=== PATIENT | male | born 1945 | race Caucasian/White ===

== ENCOUNTER 2018-05-06 00:14 | Inpatient (IN) | payer MEDICARE, OTHER ==
[2018-05-05 15:06] LABS: INR 1.01
[~2018-05-06] VITALS: Ht 167.6 cm; Wt 101.2 kg
[~2018-05-06 00:14] MED LIST: AMLO-125 PO; ASCO-182 PO; ASPI-1471 PO; CHOL200022 PO; CINN500C12 PO; HYDR-2966 PO; LOSA100T75 PO; LUTE1CAP PO; MAGN400C PO; METF-450 PO; METO25TA93 PO; MULT1CAP59 PO; OMEG1CAP35 PO; POTA99TA15 PO; SIMV-54 PO; TURM500C4 PO
[2018-05-06] MEDS ORDERED: fentaNYL CITR 100 MCG/2 ML AMP ONE (07:43)
[2018-05-06] MEDS ORDERED: PROPOFOL EMUL(*) 10MG/ML 20 ML 20 ML ONE (07:44)
[2018-05-06] MEDS ORDERED: LIDOCAINE MPF 1% 5 ML VIAL ONE (07:44)
[2018-05-06] MEDS ORDERED: KETAMINE HCL-NS 50 MG/5 ML SYR ONE (07:44)
[2018-05-06] MEDS ORDERED: DEXAMETHASONE SOD PHOS 10MG/ML ONE (07:44)
[2018-05-06] MEDS ORDERED: ONDANSETRON 4 MG/2 ML VIAL ONE (07:44)
[2018-05-06 08:20] VITALS: BP 152/88
[2018-05-06] MEDS ORDERED: MIDAZOLAM 2 MG/2 ML VIAL IVP PRN (09:15)
[2018-05-06] MEDS ORDERED: ROPIVACAINE/EPI/CLONIDINE/KET 50 ML SYRINGE INJ ONE (09:15)
[2018-05-06] MEDS ORDERED: PREGABALIN 75 MG CAPSULE PO ONE (09:15)
[2018-05-06] MEDS ORDERED: TRANEXAMIC AC 1000 MG/10ML SDV 1,000 MG in DEXTROSE 5% 50 ML BAG 50 ML IV ONE (09:15)
[2018-05-06] MEDS ORDERED: NORMOSOL R SOLN(*) 1000 ML BAG 1,000 ML IV PRN (09:15)
[2018-05-06] MEDS ORDERED: FAMOTIDINE 20 MG TAB PO ONE (09:15)
[2018-05-06] MEDS ORDERED: ceFAZolin(*) 2GM/D5W 50ML 50 ML IVPB ONE (09:15)
[2018-05-06] MEDS ORDERED: LIDOCAINE/SOD BICARB 8.4% SYR ID ONE (09:15)
[2018-05-06] MEDS ORDERED: ACETAMINOPHEN 500 MG TAB PO ONE (09:15)
[2018-05-06] MEDS ORDERED: CELECOXIB 200 MG CAP PO ONE (09:15)
[2018-05-06] MEDS ORDERED: BACITRACIN 50000 UNIT/VIAL 100,000 UNIT in NS 0.9% 3000 ML IRRIGATION BAG 3,000 ML IR ONE (09:15)
[2018-05-06] MEDS ORDERED: GLYCOPYRROLATE 0.2MG/ML 1 ML INJ ONE (10:48)
[2018-05-06] MEDS ORDERED: PROMETHAZINE 25 MG/ML 1 ML AMP IVP PRN (12:25)
[2018-05-06] MEDS ORDERED: diphenhydrAMINE 25 MG CAP PO PRN (12:25)
[2018-05-06] MEDS ORDERED: LR 1000 ML BAG 1000 ML IV PRN (12:25)
[2018-05-06] MEDS ORDERED: MAGNESIUM HYDROXIDE* 30ML UDCP PO PRN (12:25)
[2018-05-06] MEDS ORDERED: HYDROmorphone HCL 2 MG/ML SDV IVP PRN (12:25)
[2018-05-06] MEDS ORDERED: FLUSH 10 ML SYR IVP PRN (12:25)
[2018-05-06] MEDS ORDERED: ZOLPIDEM TARTRATE 5 MG TAB PO PRN (12:25)
[2018-05-06] MEDS ORDERED: ONDANSETRON 4 MG/2 ML VIAL IVP PRN (12:25)
[2018-05-06] MEDS ORDERED: MAGNESIUM CITRATE 300 ML BTL PO PRN (12:25)
[2018-05-06] MEDS ORDERED: diphenhydrAMINE 50 MG/ML VIAL IVP PRN (12:25)
[2018-05-06] MEDS ORDERED: BISACODYL 10 MG SUPP PR PRN (12:25)
--- NOTE | 2018-05-06 12:47 | RADIOLOGY IMAGING REPORT ---
FACILITY: [facility] PATIENT NAME: Bert Dowell : 1945 MR: [id number] V: [id number] EXAM DATE: ORDERING PHYSICIAN: ABELARDO BUNCH TECHNOLOGIST: Location: [facility] Patient: Bert Dowell : 1945 Visit/Account:[id number] Date of Sevice: 05/06/2018 HIP IN OR RIGHT HISTORY: Right hip pain. Hip replacement. ADDITIONAL HISTORY: None. COMPARISON: None. FINDINGS: Fluoroscopy provided for intraoperative procedure. Single intraoperative image. Right hip arthroplasty in good alignment on this single image. Moderate-severe degenerative changes at the left hip. IMPRESSION: 1. Intraoperative right hip arthroplasty in good alignment. Report Dictated By: George Lynn MD at 05/06/2018 12:42 PM Report E-Signed By: George Lynn MD at 05/06/2018 12:43 PM [id number]:[email or web address]
--- NOTE | 2018-05-06 12:51 | EKG ---
FACILITY: [facility] PATIENT NAME: MEL MTZ : [id number] MR: [id number] V: [id number] EXAM DATE: ORDERING PHYSICIAN: LEISA JOHNSTON TECHNOLOGIST: TALIA Jacobs Reason : CHECK RHYTHMN Blood Pressure : / mmHG Vent. Rate : 069 BPM Atrial Rate : 069 BPM P-R Int : 204 ms QRS Dur : 076 ms QT Int : 428 ms P-R-T Axes : 046 -20 -04 degrees QTc Int : 458 ms Normal sinus rhythm Low voltage QRS Inferior infarct , age undetermined Possible Anterolateral infarct , age undetermined Abnormal ECG No previous ECGs available Confirmed by LUDIVINA WRIGHT ([id number]) on 05/07/2018 6:24:52 AM Referred By: VICKIE Confirmed By:LUDIVINA WRIGHT
--- NOTE | 2018-05-06 12:57 | OPERATIVE REPORT 1 ---
EVENT DATE: May 06, 2018 SURGEON: Armani Nunez MD ANESTHESIOLOGIST: Tom Norwood MD ANESTHESIA: General plus spinal. [employer]: Javier Diaz PA-C PREOPERATIVE DIAGNOSIS Right hip osteoarthritis. POSTOPERATIVE DIAGNOSIS Right hip osteoarthritis. PROCEDURE PERFORMED Right total hip arthroplasty. FINDINGS The patient had a significant amount of arthritic changes associated with the hip but was amenable for a total hip replacement. ESTIMATED BLOOD LOSS About 200 mL. DRAINS None. COMPLICATIONS None. TOURNIQUET TIME Nonapplicable. IMPLANTS USED Alvin 58 mm cluster hole Trabecular metal cup with a neutral liner to accommodate a 40 mm head, a 13.5 extended off-set stem, and a 40 +0 head and then a dome hole plug and screw hole plugs accordingly for the cup. INDICATIONS AND HISTORY This patient is a 72-year-old male that presented to my clinic for evaluation of right hip pain and irritation going on for some time. He actually had hip pain bilaterally, but the right seemed to be giving him worse trouble. We talked about the implications as well as treatment options and he had failed all conservative management, so he wanted to go ahead with a total hip arthroplasty and so we got him set up to do this today 05/06/2018. The risk and benefits were discussed with the patient and informed consent was obtained at the last clinic visit. We talked about the risk and benefits associated with this, specifically for hips and just surgery in general. DESCRIPTION OF PROCEDURE As the patient was brought in the operating room, he and the procedure were both verified. He was placed sitting up on the table and give a spinal by Dr. Norwood. He was then put supine and then induced and intubated and then turned in the lateral decubitus position for the hip towards the ceiling. The right hip was then prepped and draped in the usual fashion. A timeout was observed, verifying the correct patient and procedure. The standard incision was made over the posterior aspect of the hip and it was taken through the skin and subcutaneous tissue until I got down to the greater trochanter. Then I was able to identify the piriformis and short external rotators. I was then able to cut the piriformis and then tag it for later repair. Once I did this, I was then able to expose the posterior capsule and then I put a T-shape incision within the capsule to create two flaps and then tagged the one flap for later repair also. I then was able to dislocate the hip without too much difficulty and then cut the hip in accordance with the standard cut with the Alvin System. I then removed the head and then cleaned out the socket and removed the ligamentum teres in this middle area, and then also removed the labrum 360 degrees around the socket in order to get access to the bone to verify where it was for placement of the socket. I then was able to fine the true pelvic floor and then commenced reaming, starting with a 49 mm reamer and then all the way up to a 57 mm reamer being careful to preserve the back wall and also to preserve the version associated with this. He was a touch retroverted and a touch vertical. Once I was able to do this, I then placed a 58 mm cluster hole cup without any major difficulty. It was in a slightly vertical position, but did have an excellent fixation associated with it and so therefor we left it in place, put in the dome hole and screw hole pugs without any difficulty as we made sure it was all the way down to the bone. This was then followed by placement of the liner and then we were able to then turn attention to the femur after irrigating with copious amounts of saline. Once on the femur, I was then able to use the box cutting osteotome, followed by the canal finger and then the lateralizing reamer. We then subsequently started broaching from a [address] up to the 13 which had good stability associated with it and good canal fill. I then put on a standard head and neck and this was found to have a little bit too much shuck and so therefore we put in an extended off-set which helped this tremendously without adding any length and the leg lengths felt pretty good. I then trialed this in different position. It had no signs of problems and so therefore we then took an intraoperative x-ray showing that the components were in good position and the leg lengths were good. I then removed the instrumentation and then put in the final stem and head, relocated and tested once again and it seemed to be very stable, so then I relocated it, repaired the capsule and then the piriformis through drill holes in the posterior aspect of the femur and then we put in the irrigation solution with the chlorhexidine in order to soak the wound. We let this stay in for just over a minute and then irrigated again and the closed the gluteal musculature with a #2 Quill. This was then followed by 2-0 Vicryl in the fat layer and then a 2-0 Quill in the subcutaneous tissue and then subcuticular 4-0 running Monocryl. Dressed it with Steri-Strips, gauze 4 x 4's and soft dressing. We also put in the pain cocktail prior to closure. The patient was then awakened and extubated and transferred to the PACU in stable condition. DAMON
--- NOTE | 2018-05-06 13:02 | RADIOLOGY IMAGING REPORT ---
FACILITY: [facility] PATIENT NAME: Bert Dowell : 1945 MR: [id number] V: [id number] EXAM DATE: ORDERING PHYSICIAN: ABELARDO BUNCH TECHNOLOGIST: Location: [facility] [place] Patient: Bert Dowell : 1945 Visit/Account:[id number] Date of Sevice: 05/06/2018 2 view pelvis HISTORY: POST-OP HIP PLACEMENT COMPARISON: 05/06/2018. FINDINGS: Right MAXX without dislocation acetabular component has a somewhat vertical orientation. T iny lucency within the superior does not persist on the second image and is consistent with artifact. Moderate-severe degenerative changes at the left hip. Moderate degenerative changes within the lowe r lumbar spine. IMPRESSION: 1. Right MAXX outlined above. Report Dictated By: George Lynn MD at 05/06/2018 12:55 PM Report E-Signed By: George Lynn MD at 05/06/2018 12:58 PM WSN:[email or web address]
[2018-05-06 14:10] VITALS: BP 126/72
[2018-05-06] MEDS ORDERED: INSULIN HUM LISPRO 100 UN/ML 3 ML VIAL SUBQ PRN (14:55)
--- NOTE | 2018-05-06 15:08 | Hospitalist Consultation ---
History of Present Illness Requesting Physician Dr. Nunez Reason for Consult Medical Management Chief Complaint s/p right hip replacement History of Present Illness He was admitted s/p right hip replacement. It is reported the surgery went well and without complication. History Problems: (1) CAD (coronary artery disease) Status: Chronic (2) Hyperlipidemia Status: Chronic (3) Hypertension Status: Chronic (4) COLLEEN (obstructive sleep apnea) Status: Chronic (5) Type 2 diabetes mellitus Status: Chronic Home Meds Reported Medications Cholecalciferol (Vitamin D3) (Vitamin D-3) 2,000 Unit Tablet, 25 MG PO QDAY 04/29/18 Lutein/Zeaxanthin (LUTEIN-ZEAXANTHIN 25-5 MG SFGL) 1 Each Capsule, 1 EACH PO QDAY, CAPSULE 04/29/18 Aspirin (ASPIR 81) 81 Mg Tablet.dr, 81 MG PO QDAY, TAB 04/29/18 [place]-3/Dha/Epa/Fish Oil (FISH OIL 500 MG SOFTGEL) 1 Each Capsule, 300 MG PO QDAY, CAPSULE 04/29/18 Cinnamon Bark (CINNAMON) 500 Mg Capsule, 1000 MG PO QDAY, CAPSULE 04/29/18 Potassium (POTASSIUM) 99 Mg Tablet, 500 MG PO QDAY 04/29/18 Ascorbic Acid (VITAMIN C) 500 Mg Tablet, 500 MG PO QDAY, TAB 04/29/18 Turmeric/Turmeric Root Extract (Turmeric 500 mg Capsule) 450 Mg-50 Mg Capsule, 500 MG PO QDAY 04/29/18 Magnesium Oxide (MAGNESIUM) 400 Mg Capsule, 400 MG PO QDAY, CAPSULE 04/29/18 Multivitamin (MULTIVITAMINS) 1 Each Capsule, 1 EACH PO QDAY, CAPSULE 04/29/18 Simvastatin (SIMVASTATIN) 40 Mg Tablet, 40 MG PO QDAY, TAB 04/29/18 Metoprolol Tartrate (METOPROLOL TARTRATE) 25 Mg Tablet, 1 TAB PO BID, TAB 04/29/18 Losartan Potassium (LOSARTAN POTASSIUM) 100 Mg Tablet, 100 MG PO QDAY 04/29/18 Hydrochlorothiazide (HYDROCHLOROTHIAZIDE) 25 Mg Tablet, 1 TAB PO QDAY, TAB 04/29/18 Metformin Hcl (METFORMIN HCL) 500 Mg Tablet, 1 TAB PO BID, TAB 04/29/18 Amlodipine Besylate (AMLODIPINE BESYLATE) 5 Mg Tablet, 1 TAB PO QDAY, TAB 04/29/18 Allergies: Coded Allergies: oxytetracycline (Verified Allergy, Intermediate, HIVES, 04/29/18) proparacaine (Verified Allergy, Intermediate, RASH, 04/29/18) droperidol (Verified Adverse Reaction, Intermediate, 04/29/18) PT REPORTS ADVERSE EFFECT- INCREASED ENERGY fentanyl (Verified Adverse Reaction, Intermediate, 04/29/18) PT REPORTS ADVERSE EFFECT- INCREASED ENERGY Patient History: FH: breast cancer BROTHER OR SISTER FH: cardiovascular disease MOTHER FH: prostate cancer FATHER Mitral valve disorder CHILD Hx Smoking: Yes (QUIT IN 1976) Smoking Status: Former Smoker When Quit Tobacco?: 1969 Caffeine Intake: Coffee Caffeine/Cups Per Day: 2CPD Hx Alcohol Use: Yes Hx Substance Use Disorder: No Social Drug Use: Never History of IV Drug Use: No Review of Systems All Systems Reviewed/Normal: Yes, Except as Noted Exam Vital Signs Vital Signs Date Time Temp Pulse Resp B/P (MAP) Pulse Ox O2 Delivery O2 Flow Rate FiO2 05/06/18 12:45 69 16 94 05/06/18 08:20 96.9 152/88 (109) Room Air General Appearance: Alert, Awake, No Acute Distress, Afebrile Neuro: No Gross deficits Cardiovascular: Regular Rate and Rhythm Respiratory: No Respiratory Distress, Clear to Auscultation Psych: Alert & Oriented X3, Appropriate Mood & Affect Assessment and Plan Problems: (1) Status post right hip replacement Status: Acute Assessment & Plan: Followed by Dr. Nunez. He will be placed on Aspirin for DVT prophylaxis. (2) Hypertension Status: Chronic Assessment & Plan: He is on chronic treatment with Metoprolol, Losartan, Amlodipine, and Hydrochlorothiazide. The Metoprolol, Losartan, Amlodipine have been restarted with hold parameters. (3) Hyperlipidemia Status: Chronic Assessment & Plan: He is on chronic treatment with Simvastatin. (4) CAD (coronary artery disease) Status: Chronic Assessment & Plan: He is on chronic treatment with baby aspirin. This will be held while receiving full strength aspirin. (5) Type 2 diabetes mellitus Status: Chronic Assessment & Plan: He is on chronic treatment with Metformin. This will be held until he is eating better. He will be placed on SS insulin #1, AC/HS blood glucose monitoring. (6) COLLEEN (obstructive sleep apnea) Status: Chronic Assessment & Plan: He did bring his own CPAP machine to use during admission. Venous Thromboembolism Antithrombotics Is Pt On Any Antithrombotics?: No Problem Qualifiers (1) Hypertension: Hypertension type: essential hypertension Qualified Codes: I10 - Essential (primary) hypertension CLEMENTINE LOPEZP May 06, 2018 15:08
[2018-05-06] MEDS ORDERED: NS(*) 0.9% 250 ML BAG 250 ML ONE (16:39)
[2018-05-06] MEDS: ceFAZolin(*) 2GM/D5W 50ML 50 ML IVPB SCH (16:54)
[2018-05-06 18:57] VITALS: BP 121/77
[2018-05-06] MEDS ORDERED: ASPIRIN 325 MG TAB PO SCH (21:00)
[2018-05-06] MEDS: METOPROLOL TART 50 MG TAB PO SCH (21:25)
[2018-05-06 23:17] VITALS: BP 111/60
[2018-05-07] MEDS: ceFAZolin(*) 2GM/D5W 50ML 50 ML IVPB SCH ×2 (01:33→08:40)
[2018-05-07 04:03] VITALS: BP 130/79
[2018-05-07] MEDS ORDERED: OXYC-854 PO (08:25)
[2018-05-07] MEDS: METOPROLOL TART 50 MG TAB PO SCH (08:39)
[2018-05-07 08:44] VITALS: Ht 167.6 cm; Wt 101.2 kg
[2018-05-07] MEDS ORDERED: amLODIPine BESYL(*) 5 MG TAB PO SCH (09:00)
[2018-05-07] MEDS ORDERED: metFORMIN HCL 500 MG TAB PO SCH (09:00)
[2018-05-07] MEDS ORDERED: SIMVASTATIN 40 MG TAB PO SCH (09:00)
[2018-05-07] MEDS ORDERED: LOSARTAN POTASSIUM 50 MG TAB PO SCH (09:00)
[2018-05-07] MEDS ORDERED: ASPI-757 PO (09:45)
--- NOTE | 2018-05-07 09:48 | Hospitalist Progress Note ---
Subjective Progress Notes Subjective He was admitted after hip replacement. He has no complaints this morning. He had no acute events overnight. Patient Complains of: Cardiovascular: No: Chest Pain Respiratory: No: Shortness of Breath Physical Exam Vital Signs Date Time Temp Pulse Resp B/P (MAP) Pulse Ox O2 Delivery O2 Flow Rate FiO2 05/07/18 07:10 90 Room Air 05/07/18 04:03 97.9 54 16 130/79 (96) 2.0 Intake and Output0 05/07/18 07:00 Intake Total 5192.3 ml Balance 5192.3 ml Intake Oral 1040 ml IV Total 2152.3 ml Other 2000 ml # Voids 3 General Appearance: Alert, Awake, No Acute Distress, Afebrile Neuro: No Gross deficits Cardiovascular: Regular Rate and Rhythm Respiratory: No Respiratory Distress, Clear to Auscultation GI: Soft and Non-Tender Psych: Alert & Oriented X3, Appropriate Mood & Affect Result Diagram: 05/07/18 0510 Assessment and Plan Problems: (1) Status post right hip replacement Status: Acute Assessment & Plan: Followed by Dr. Nunez. He will be placed on Aspirin for DVT prophylaxis. (2) Hypertension Status: Chronic Assessment & Plan: He is on chronic treatment with Metoprolol, Losartan, Amlodipine, and Hydrochlorothiazide. The Metoprolol, Losartan, Amlodipine were restarted with hold parameters. (3) Hyperlipidemia Status: Chronic Assessment & Plan: He is on chronic treatment with Simvastatin. (4) CAD (coronary artery disease) Status: Chronic Assessment & Plan: He is on chronic treatment with baby aspirin. This will be held while receiving full strength aspirin. (5) Type 2 diabetes mellitus Status: Chronic Assessment & Plan: He is on chronic treatment with Metformin. He was placed on SS insulin #1, AC/HS blood glucose monitoring. (6) COLLEEN (obstructive sleep apnea) Status: Chronic Assessment & Plan: He did bring his own CPAP machine to use during admission. Exam Sepsis Risk: No Definite Risk Problem Qualifiers (1) Hypertension: Hypertension type: essential hypertension Qualified Codes: I10 - Essential (primary) hypertension CLEMENTINE LOPEZP May 07, 2018 09:48
--- NOTE | 2018-05-07 10:23 | NUR ---
Occupational Therapy Impression Pt alert and agreeable to OT tx. No report of pain throughout tx. Requiring frequent redirection to plan for OT intervention. Pt recalling 3/3 posterior hip precautions and adhering throughout ADLs. Pt has sock aid, seam finisher, long handled shoe horn, and walk-in shower with chair. Reports spouse will assist with all ADLs. Mod (I) all mobility, toileting, and grooming. Spouse assisting with LB dressing per pt request. Handout provided re: ADLs with posterior hip precautions. Pt verbalized understanding and presents with no further questions/concerns for OT at this time. Ok for discharge when medically appropriate. Occupational Therapy Goals Patient's Goal
== END 2018-05-07 11:35 | disposition home or self-care (01) | DRG 470 ==
LOC: OR 00:14 → MED 14:10
PROVIDERS: ADMIT Orthopaedic Surgery; ATTEND Orthopaedic Surgery
PROC: 5A09357 Assistance with Respiratory Ventilation, Less than 24 Consecutive Hours, Continuous Positive Airway Pressure (ICD-10-PCS; 2018-05-06)
PROC: 0SR901Z Replacement of Right Hip Joint with Metal Synthetic Substitute, Open Approach (ICD-10-PCS; principal; 2018-05-06 10:08)
DX: M16.11 Unilateral primary osteoarthritis, right hip (principal); I25.10 Atherosclerotic heart disease of native coronary artery without angina pectoris; I10 Essential (primary) hypertension; G47.33 Obstructive sleep apnea (adult) (pediatric); E11.9 Type 2 diabetes mellitus without complications; E78.5 Hyperlipidemia, unspecified; Z79.84 Long term (current) use of oral hypoglycemic drugs; Z88.8 Allergy status to other drugs, medicaments and biological substances; Z88.5 Allergy status to narcotic agent
CPT/HCPCS: 36415; 36416; 72170; 82948; 85014; 85018; 85610; 86850; 86900; 86901; 93005; 97161; 97165; J0690; J1100; J2001; J2250; J2405; J2704; J3010; J3490; J7050; J7060

== ENCOUNTER 2018-10-21 01:21 | Inpatient (IN) | payer MEDICARE, OTHER ==
[2018-10-20 16:14] LABS: INR 0.98
[2018-10-21] VITALS (13 sets, daily range): BP systolic 119–142; BP diastolic 63–82
[~2018-10-21] VITALS: Ht 167.6 cm; Wt 102.5 kg
[~2018-10-21 01:21] MED LIST changes: +ASPI-757 PO; +OXYC-854 PO
[2018-10-21] MEDS ORDERED: fentaNYL CITR 100 MCG/2 ML AMP ONE (08:59)
[2018-10-21] MEDS ORDERED: PROPOFOL EMUL(*) 10MG/ML 20 ML 20 ML ONE (09:00)
[2018-10-21] MEDS ORDERED: DEXAMETHASONE SOD PHOS 10MG/ML ONE (09:00)
[2018-10-21] MEDS ORDERED: KETAMINE HCL-NS 50 MG/5 ML SYR ONE (09:00)
[2018-10-21] MEDS ORDERED: ONDANSETRON 4 MG/2 ML VIAL ONE (09:00)
[2018-10-21] MEDS ORDERED: ACETAMINOPHEN 500 MG TAB PO ONE (11:15)
[2018-10-21] MEDS ORDERED: LIDOCAINE/SOD BICARB 8.4% SYR ID ONE (11:15)
[2018-10-21] MEDS ORDERED: BACITRACIN 50000 UNIT/VIAL 100,000 UNIT in NS 0.9% 3000 ML IRRIGATION BAG 3,000 ML IR ONE (11:15)
[2018-10-21] MEDS ORDERED: MIDAZOLAM 2 MG/2 ML VIAL IVP PRN (11:15)
[2018-10-21] MEDS ORDERED: CELECOXIB 200 MG CAP PO ONE (11:15)
[2018-10-21] MEDS ORDERED: NORMOSOL R SOLN(*) 1000 ML BAG 1,000 ML IV PRN (11:15)
[2018-10-21] MEDS ORDERED: ceFAZolin(*) 2GM/D5W 50ML 50 ML IVPB ONE (11:15)
[2018-10-21] MEDS ORDERED: TRANEXAMIC AC 1000 MG/10ML SDV 1,000 MG in DEXTROSE 5% 50 ML BAG 50 ML IV ONE (11:15)
[2018-10-21] MEDS ORDERED: FAMOTIDINE 20 MG TAB PO ONE (11:15)
[2018-10-21] MEDS ORDERED: ROPIVACAINE/EPI/CLONIDINE/KET 50 ML SYRINGE INJ ONE (11:15)
[2018-10-21] MEDS ORDERED: PREGABALIN 75 MG CAPSULE PO ONE (11:15)
--- NOTE | 2018-10-21 11:30 | NUR ---
Delay with instruments caused OR delay. Patient and family informed by Dr. Norwood, Dr. Nunez and myself. Care cards given to daughter and . Patient and family very understanding of delay and the need to be safe and not rushed. Expressed how they are happy to be here and chose this hospital for a reason.
--- NOTE | 2018-10-21 15:47 | RADIOLOGY IMAGING REPORT ---
FACILITY: [facility] PATIENT NAME: Bert Dowell : 1945 MR: [id number] V: [id number] EXAM DATE: ORDERING PHYSICIAN: ABELARDO BUNCH TECHNOLOGIST: Location: [facility] [place] Patient: Bert Dowell : 1945 Visit/Account:[id number] Date of Sevice: 10/21/2018 Exam type: 3 views left hip History: Hip arthroplasty Comparison: 05/06/2018. Findings: The images provided demonstrate bilateral hip arthroplasties without hardware complication. Vascular calcification is noted. One of the views of the left hip demonstrates a solitary acetabular component presumably during the preliminary portion of the surgery. IMPRESSION: 1. Bilateral hip arthroplasties without hardware complication. Report Dictated By: Jesse Maria MD at 10/21/2018 3:36 PM Report E-Signed By: Jesse Maria MD at 10/21/2018 3:38 PM WSN:[id number]
[2018-10-21] MEDS ORDERED: BISACODYL 10 MG SUPP PR PRN (16:40)
[2018-10-21] MEDS ORDERED: MAGNESIUM HYDROXIDE* 30ML UDCP PO PRN (16:40)
[2018-10-21] MEDS ORDERED: MAGNESIUM CITRATE 300 ML BTL PO PRN (16:40)
[2018-10-21] MEDS ORDERED: PROMETHAZINE 25 MG/ML 1 ML AMP IVP PRN (16:40)
[2018-10-21] MEDS ORDERED: diphenhydrAMINE 25 MG CAP PO PRN (16:40)
[2018-10-21] MEDS ORDERED: oxyCODON/ACET (*)5/325MG (CII) 1 TAB TAB PO PRN (16:40)
[2018-10-21] MEDS ORDERED: FLUSH 10 ML SYR IVP PRN (16:40)
[2018-10-21] MEDS ORDERED: diphenhydrAMINE 50 MG/ML VIAL IVP PRN (16:40)
[2018-10-21] MEDS ORDERED: ZOLPIDEM TARTRATE 5 MG TAB PO PRN (16:40)
[2018-10-21] MEDS ORDERED: HYDROmorphone HCL 2 MG/ML SDV IVP PRN (16:40)
[2018-10-21] MEDS ORDERED: LR 1000 ML BAG 1000 ML IV PRN (16:40)
[2018-10-21] MEDS ORDERED: ONDANSETRON 4 MG/2 ML VIAL IVP PRN (16:40)
--- NOTE | 2018-10-21 16:42 | RADIOLOGY IMAGING REPORT ---
FACILITY: [facility] PATIENT NAME: Bert Dowell : 1945 MR: [id number] V: [id number] EXAM DATE: ORDERING PHYSICIAN: ABELARDO BUNCH TECHNOLOGIST: Location: [facility] Patient: Bert Dowell : 1945 Visit/Account:[id number] Date of Sevice: 10/21/2018 PELVIS INDICATION: Left total hip arthroplasty COMPARISON: 05/06/2018 FINDINGS: Again demonstrated are bilateral total hip arthroplasties. Components appear well seated. Negative pe riprosthetic lucency or fracture. More cephalad pelvis is excluded. IMPRESSION: 1. Bilateral total hip arthroplasties without findings to suggest hardware complication. Report Dictated By: Jesse Talavera MD at 10/21/2018 4:32 PM Report E-Signed By: Jesse Talavera MD at 10/21/2018 4:33 PM WSN:[email or web address]
[2018-10-21] MEDS ORDERED: INSULIN HUM LISPRO 100 UN/ML 3 ML VIAL SUBQ PRN (19:25)
--- NOTE | 2018-10-21 19:38 | Hospitalist Progress Note ---
Subjective Progress Notes Subjective No cp/sob. EBL 250cc. 1800cc of crystalloid, dexamethasone, ephedrine and TXA given intra-op. Physical Exam Vital Signs Date Time Temp Pulse Resp B/P (MAP) Pulse Ox O2 Delivery O2 Flow Rate FiO2 10/21/18 19:00 126/74 (91) 10/21/18 18:30 55 94 10/21/18 18:05 97.6 12 Nasal Cannula 2.0 General Appearance: Alert, Awake, No Acute Distress Cardiovascular: Regular Rate and Rhythm Respiratory: Clear to Auscultation Extremities: No Edema Assessment and Plan Problems: (1) Status post hip replacement Status: Acute Assessment & Plan: No CV/pulmonary issues. He tolerated ASA for blood clot prevention with his previous hip replacement in April, so he will be on it again. (2) Type 2 diabetes mellitus Status: Chronic Assessment & Plan: Chronically on Metformin which will be restarted the morning of 10/23. AC and HS glucose with SSI level 2 to cover. (3) Hypertension Status: Chronic Assessment & Plan: He is on chronic treatment with Metoprolol, Losartan, A mlodipine, and Hydrochlorothiazide, which will be restarted with parameters. (4) CAD (coronary artery disease) Status: Chronic Assessment & Plan: Continue chronic treatment with Simvastatin. ASA 81mg to be increased to 325mg for the next 30 days. See above. (5) COLLEEN (obstructive sleep apnea) Status: Chronic Assessment & Plan: He did bring his own CPAP machine to use during admission. Exam Sepsis Risk: No Definite Risk Problem Qualifiers (1) Status post hip replacement: Laterality: left Qualified Codes: Z96.642 - Presence of left artificial hip joint DANILO DODSON MD Oct 21, 2018 19:38
[2018-10-21] MEDS ORDERED: ASPIRIN 325 MG TAB PO SCH (21:00)
[2018-10-21] MEDS ORDERED: SIMVASTATIN 40 MG TAB PO SCH (21:00)
[2018-10-21] MEDS: METOPROLOL TART 50 MG TAB PO SCH (21:07)
[2018-10-21] MEDS: TIMOLOL MAL 0.25% OP SOLN 5 ML OS SCH (21:41)
[2018-10-21] MEDS: APAP/HYDROCODONE 325/5 TAB PO PRN (21:43)
[2018-10-21] MEDS: BRIMONIDINE TAR 0.15% 5 ML BTL OS SCH (21:49)
[2018-10-21] MEDS: ceFAZolin(*) 2GM/D5W 50ML 50 ML IVPB SCH (21:51)
[2018-10-21] MEDS: cycloSPORINE 0.05% EMUL 1 DROP OS SCH (21:55)
[2018-10-21] MEDS: prednisoLONE ACE 1% OP 5ML BTL OS SCH (21:55)
--- NOTE | 2018-10-21 23:22 | OPERATIVE REPORT 1 ---
EVENT DATE: October 21, 2018 SURGEON: Armani Nunez MD ANESTHESIOLOGIST: Tom Eden MD ANESTHESIA: General plus spinal. HOMEMAKING REHABILITATION CONSULTANT: RONALDO Apple PREOPERATIVE DIAGNOSIS Left hip osteoarthritis. POSTOPERATIVE DIAGNOSIS Left hip osteoarthritis. PROCEDURE PERFORMED Left total hip arthroplasty. FINDINGS The patient had a significant amount of arthritic changes associated with his hip. It was amenable for a total hip replacement. ESTIMATED BLOOD LOSS 250 mL. DRAINS None. COMPLICATIONS None. TOURNIQUET TIME Not applicable. IMPLANTS USED Alvin Continuum Shell which was trabeculated metal cluster hole shell. It was 60 mm diameter with a 40 neutral liner, a 13.5 extended offset stem, and a 40, +0 head. SPECIMENS None. INDICATIONS AND HISTORY This patient is a 73-year-old male who presented to my clinic for evaluation of bilateral hip pain and irritation going on for some time. We had replaced the right hip previously, and he had very good results, and now the left hip was giving him more trouble, so he wanted to go ahead with a left total hip replacement today. The risks and benefits were discussed with the patient, and informed consent was obtained. We got him set up to do this today. DESCRIPTION OF PROCEDURE As the patient was brought in the operating room, he and the procedure were both verified. He was given a spinal by Anesthesia and then placed supine on the operating table and induced and intubated by Anesthesia. He was then turned into the lateral decubitus position with the left leg toward the ceiling, and then the left leg was prepped and draped in the usual fashion. A timeout was observed verifying the correct patient and procedure. The standard incision was made over the posterolateral aspect of the femur, and then I was able to make an incision through the skin and subcutaneous tissue through this area until I got down to the IT band as well as the gluteal musculature. Once I was able to get up to the gluteal musculature and spread this manually, I was then able to identify the short external rotators. We then identified the piriformis, cut it, and then tagged it for later repair. We also removed some of the rest of the short external rotators and then got down to the capsule. I made a T incision within the capsule with the T being a high T incision up on the top part of the femoral head. Once I was able to identify that we were in good position, I then removed the rest of the capsule off the rest of it and then dislocated the hip without any difficulty. I then cut the femoral neck without any major issues in accordance with the Alvin stem that we were going to use. I then turned attention to the acetabulum where I put in retractors anteriorly and inferiorly and one superiorly. I was then able to remove the rest of the labrum throughout the area 360 degrees around the acetabulum itself and then get down to remove the ligament in the central portion and get down to the true pelvic floor. Once I was able to do this, I then commenced reaming with a 47 mm reamer and then all the way up to a 59 mm reamer. We then put in a Continuum cluster hole shell without any major issues and verified through the holes that it was down all the way against the cup itself. It showed no signs of movement or instability, and so therefore, we did not need a screw. I then put in a dome hole plug and three screw hole plugs without any issues. I then finally put in the liner after irrigating the wound with copious amounts of saline, then using the Irrisept irrigation. I was then able to turn attention to the femur where I was able to internally rotate and flex the femur in order to get at the femur. I then used a box cutting osteotome, followed by a canal finding reamer, then a lateralizing reamer, and then commenced broaching. We went from a [address] up to a 13.5 extended offset broach. This looked good and felt good within the femur itself, and so therefore, we then used the extended offset and the 40 head without any difficulty. I then put it in and relocated it and took x-ray images. The x-ray images showed good symmetry between bilateral hips as we had used an extended offset on the other side and good length associated with this. Then on dislocation, we did hear a small crack. We identified a small fracture in the posterior aspect by the greater trochanter. It was not affecting the actual greater trochanter, and the greater trochanter was not loose. There were no signs of cracks down the shaft. We then removed all the instrumentation, brought back x-ray, and verified that there were no fractures of the femur associated with this. I then put in the final components without any difficulty, relocated it, and they were very stable and had no signs of problems. There was very good range of motion, so then I closed the capsule with a heavy Ethibond suture and then reattached the piriformis through drill holes in the posterior aspect of the trochanter. I then irrigated with copious amounts of saline again and then was able to close the gluteal musculature with a #2 Quill. This was then followed by 2-0 Vicryl in the subcutaneous fat and then a subcutaneous 2-0 Stratafix, followed by a 4-0 Monocryl, and then a Prineo dressing over the top. The patient was put in a soft dressing and then a hip wrap, then awakened, extubated, and transferred to PACU in stable condition where he will be admitted overnight. DAMON
[2018-10-22] VITALS: BP 123/73
[2018-10-22 02:01] VITALS: BP 137/65
[2018-10-22] MEDS: APAP/HYDROCODONE 325/5 TAB PO PRN ×2 (02:06→09:27)
[2018-10-22] MEDS: ceFAZolin(*) 2GM/D5W 50ML 50 ML IVPB SCH (05:47)
[2018-10-22 07:28] VITALS: BP 123/67
[2018-10-22] MEDS ORDERED: ASPI-757 PO (08:05)
[2018-10-22] MEDS ORDERED: HYDR-653 PO (08:22)
[2018-10-22 08:57] VITALS: Ht 167.6 cm; Wt 102.5 kg
[2018-10-22] MEDS ORDERED: MAGNESIUM OXIDE 400 MG TAB PO SCH (09:00)
[2018-10-22] MEDS ORDERED: amLODIPine BESYL(*) 5 MG TAB PO SCH (09:00)
[2018-10-22] MEDS ORDERED: HYDROCHLOROTHIAZIDE 25 MG TAB PO SCH (09:00)
[2018-10-22] MEDS ORDERED: LATANOPRO 0.005% OP SOLN 2.5ML OS SCH (09:00)
[2018-10-22] MEDS ORDERED: LOSARTAN POTASSIUM 50 MG TAB PO SCH (09:00)
[2018-10-22] MEDS: METOPROLOL TART 50 MG TAB PO SCH (09:28)
[2018-10-22] MEDS: cycloSPORINE 0.05% EMUL 1 DROP OS SCH (09:30)
[2018-10-22] MEDS: TIMOLOL MAL 0.25% OP SOLN 5 ML OS SCH (09:31)
[2018-10-22] MEDS: BRIMONIDINE TAR 0.15% 5 ML BTL OS SCH (09:31)
[2018-10-22] MEDS: prednisoLONE ACE 1% OP 5ML BTL OS SCH (09:31)
--- NOTE | 2018-10-22 11:15 | Hospitalist Progress Note ---
Subjective Progress Notes Subjective He was admitted s/p hip replacement. He had no acute events overnight. Patient Complains of: Cardiovascular: No: Chest Pain Respiratory: No: Shortness of Breath Physical Exam Vital Signs Date Time Temp Pulse Resp B/P (MAP) Pulse Ox O2 Delivery O2 Flow Rate FiO2 10/22/18 07:28 98.3 63 123/67 (85) 87 Room Air 10/22/18 02:01 16 1.0 Intake and Output 10/22/18 01:03 Intake Total 3070 ml Balance 3070 ml Intake Oral 920 ml IV Total 2150 ml Blood Product 0 ml Other 0 ml # Voids 3 General Appearance: Alert, Awake, No Acute Distress, Afebrile Neuro: No Gross deficits Cardiovascular: Regular Rate and Rhythm Respiratory: No Respiratory Distress, Clear to Auscultation GI: Soft and Non-Tender Psych: Alert & Oriented X3, Appropriate Mood & Affect Result Diagram: 10/22/18 0522 Assessment and Plan Problems: (1) Status post hip replacement Status: Acute Assessment & Plan: No CV/pulmonary issues. He tolerated ASA for blood clot prevention with his previous hip replacement in April, so he will be on it again. (2) Type 2 diabetes mellitus Status: Chronic Assessment & Plan: Chronically on Metformin which will be restarted the morning of 10/23. AC and HS glucose with SSI level 2 to cover. (3) Hypertension Status: Chronic Assessment & Plan: He is on chronic treatment with Metoprolol, Losartan, Amlodipine, and Hydrochlorothiazide, which will be restarted with parameters. (4) CAD (coronary artery disease) Status: Chronic Assessment & Plan: Continue chronic treatment with Simvastatin. ASA 81mg to be increased to 325mg for the next 30 days. See above. (5) COLLEEN (obstructive sleep apnea) Status: Chronic Assessment & Plan: He did bring his own CPAP machine to use during admission. (6) Acute respiratory insufficiency, postoperative Status: Acute Assessment & Plan: He will be sent home with home oxygen. He should follow up with his PCP in 1-2 weeks for follow up. Exam Sepsis Risk: No Definite Risk Problem Qualifiers (1) Status post hip replacement: Laterality: left Qualified Codes: Z96.642 - Presence of left artificial hip joint CLEMENTINE LOPEZ BOAT HOP Oct 22, 2018 11:15
--- NOTE | 2018-10-22 13:24 | NUR ---
Occupational Therapy Impression Pt alert and agreeable to OT tx. Reviewed ADLs with adherence to posterior hip precautions handout. Recalling all precautions. Pt has all recommended AE and is familiar from previous MAXX. Spouse will assist with dressing as needed. Pt has no further questions/concerns for OT at this time. Ready for discharge when medically appropriate. Occupational Therapy Goals Patient's Goal
[2018-10-24] MEDS ORDERED: metFORMIN HCL 500 MG TAB PO SCH (08:00)
== END 2018-10-22 11:45 | disposition home or self-care (01) | DRG 470 ==
LOC: OR 01:21 → MED 18:00
PROVIDERS: ADMIT Orthopaedic Surgery; ATTEND Orthopaedic Surgery
PROC: 5A09357 Assistance with Respiratory Ventilation, Less than 24 Consecutive Hours, Continuous Positive Airway Pressure (ICD-10-PCS; 2018-10-21)
PROC: 0SRB02A Replacement of Left Hip Joint with Metal on Polyethylene Synthetic Substitute, Uncemented, Open Approach (ICD-10-PCS; principal; 2018-10-21 13:16)
DX: M16.12 Unilateral primary osteoarthritis, left hip (principal); E11.9 Type 2 diabetes mellitus without complications; I10 Essential (primary) hypertension; G47.33 Obstructive sleep apnea (adult) (pediatric); I25.10 Atherosclerotic heart disease of native coronary artery without angina pectoris; H54.61 Unqualified visual loss, right eye, normal vision left eye; E78.5 Hyperlipidemia, unspecified; R06.89 Other abnormalities of breathing
CPT/HCPCS: 36415; 36416; 72170; 82948; 85014; 85018; 85610; 86850; 86900; 86901; 97165; J0690; J1100; J2250; J2405; J2704; J3010; J3490; J7060